=== PATIENT | male | born 1965 | race Caucasian/White ===

== ENCOUNTER 2024-01-08 16:34 | Inpatient (IN) | payer BC, SELFPAY ==
[2024-01-08] MEDS ORDERED: ACETAMINOPHEN 500 MG TAB PO PRN (18:17)
[2024-01-08] MEDS ORDERED: ONDANSETRON 4 MG/2 ML VIAL IV PRN (18:17)
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
[2024-01-08] MEDS: HYDROMORPHONE HCL 0.5 MG/0.5 ML INJ IV PRN (18:36)
[2024-01-08] MEDS: NA CHLORIDE 0.9% 1,000 ML IV SCH (18:36)
[2024-01-08] MEDS: PIPER TAZO 3.375 GM in NA CHLORIDE 0.9% 100 ML IV SCH (21:21)
[2024-01-08] MEDS: TRAZODONE 50 MG TABLET PO SCH (21:21)
[2024-01-09] MEDS: HYDROMORPHONE HCL 0.5 MG/0.5 ML INJ IV PRN (02:35)
[2024-01-09 06:51] LABS: Absolute Lymphocytes (CBC) 0.4 K/uL (0.7-4.9); Absolute Monocytes 0.8 K/uL (0.1-1.3); Absolute Neutrophil 10.1 K/uL (1.8-8.0); Basophils % 0.2 % (0-1.3); Eosinophils % 0.1 % (0-4.4); Hematocrit 40.3 % (39.6-49.0); Hemoglobin 13.7 g/dL (13.6-17.9); Lymphocytes % 3.3 % (15.3-44.8); MCH 31.1 pg (27.0-35.0); MCV 91.4 fL (80-100); MPV 8.3 fL (7.6-11.3); Monocytes % 7.2 % (3.3-12.3); Neutrophils % 89.2 % (41.7-73.7); Platelets 212 thou/uL (152-406); RBC Red Blood Cell Count 4.41 M/uL (4.33-5.43); Red Cell Distribution Width 12.7 % (12.1-15.2)
[2024-01-09 06:56] LABS: PT Prothrombin Time 15.1 SECONDS (9.4-12.5); PTT, Activated Partial Thromb 38.4 SECONDS (24.3-36.9); Protime INR 1.36
[2024-01-09 07:06] LABS: Albumin/Globulin Ratio 0.8 (1.1-1.8); Anion Gap 8.1 mEq/L (5.0-15.0); Bilirubin Direct 0.8 mg/dL (0-0.2); Bilirubin Indirect, Calculated 0.6 mg/dL (0.2-0.8); Bilirubin Total 1.4 mg/dL (0.2-1.0); Globulin 3.9 g/dL (2.3-3.5); Phosphorus 2.7 mg/dL (2.5-4.9); Potassium 3.1 mEq/L (3.5-5.1); Protein, Total 6.9 g/dL (6.4-8.2)
[2024-01-09] MEDS ORDERED: ROCURONIUM 50 MG/5 ML VIAL IV ONE (07:13)
[2024-01-09] MEDS ORDERED: FENTANYL CITR 100 MCG/2 ML ONE ×2 (07:13→08:12)
[2024-01-09] MEDS ORDERED: LIDOCAINE 2% MPF 5 ML VIAL ONE (07:13)
[2024-01-09] MEDS ORDERED: MIDAZOLAM HCL 2 MG/2 ML INJ ONE (07:13)
[2024-01-09] MEDS ORDERED: ONDANSETRON 4 MG/2 ML VIAL ONE (07:13)
[2024-01-09] MEDS ORDERED: propofoL 200 MG/20 ML VIAL IV ONE (07:13)
[2024-01-09] MEDS: NA CHLORIDE 0.9% 1,000 ML ONE (07:18)
[2024-01-09] MEDS: SUCCINYLCHOLINE 20 MG/ML (10 ML) IV ONE (07:23)
[2024-01-09] MEDS: SUGAMMADEX SODIUM 200 MG/2 ML VIAL IV ONE (07:23)
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
[2024-01-09] MEDS ORDERED: dexAMETHasone 10 MG/ML VIAL ONE (07:50)
[2024-01-09] MEDS: PIPER TAZO 3.375 GM in NA CHLORIDE 0.9% 100 ML IV SCH (07:53)
--- NOTE | 2024-01-09 09:08 | P.OP ---
Date of Service: 01/09/24 Preop diagnosis: Acute cholecystitis and cholelithiasis Postop diagnosis: Same with gallbladder perforation, adhesions Procedure performed: Laparoscopic cholecystectomy, lysis of adhesions Surgeon: Omi Medina MD Dietitian Teacher: None Estimated blood loss: 50 cc Specimen: Gallbladder Findings: As above Anesthesia: General Complications: None Drains: ADDISON drain #10 flat Fluids and blood products: Nonapplicable Disposition: Recovery room Operative note: Patient brought to the OR and placed in the supine position. General anesthesia began. Patient prepped and draped in the usual sterile fashion. Marcaine 0.5% infiltrated locally. 15 blade used to make a 1 cm supraumbilical midline incision. Subcutaneous tissue divided. Bleeding controlled cautery. Fascia identified and divided. #1 Vicryl stay suture placed. Peritoneal cavity entered with sharp blunt dissection. 12 mm trocar placed into the peritoneal cavity under direct vision. Pneumoperitoneum established. Three 5 mm trocar placed under direct vision. 1 trocar placed in the epigastric region just to the right of midline. 2 trocars placed in the right subcostal region. Laparoscopy revealed bile throughout the right upper quadrant and right side of the abdomen. This is consistent with a perforated gallbladder. There is extensive omental adhesions to the gallbladder. Sharp and blunt dissection was used to remove the adhesions from the gallbladder. An area of perforation in the body of the gallbladder was identified. This was grasped to limit the amount of bile spillage. The body was retracted superiorly and infundibulum identified and retracted inferolaterally. Cystic duct and cystic artery were clearly identified with blunt dissection. Clips placed and both structures divided. Cautery used to remove the gallbladder from the liver bed. There was extensive oozing from the liver bed and cautery was utilized aggressively to control the bleeding and the oozing. Bonny and Surgicel was used at the end of the case after bleeding was controlled. The gallbladder was retrieved to the umbilicus via Endo Catch bag. Right upper quadrant was irrigated if it was clear there was no further evidence of bile leakage or bleeding noted. Major-Lizama drain #10 flat was placed in the gallbladder fossa. This was secured with 3-0 nylon. All trocars were removed under direct vision. Stay sutures were tied to each other to reapproximate the fascial defect. Subcutaneous wounds irrigated and bleeding controlled with cautery. 3- 0 chromic used to approximate subcutaneous tissue. [place] used to close skin. Sterile dressing applied and patient was awakened and taken to recovery room in good general condition. CC:
[2024-01-09 09:47] LABS: Blood Morphology Comment NOT SEEN (NOT SEEN); Platelet Estimate ADEQ; White Blood Cell Scan OK (OK)
[2024-01-09] MEDS: SERTRALINE HCL 100 MG TAB PO SCH (11:05)
[2024-01-09] MEDS: POTASSIUM CL SA 10 MEQ TAB PO ONE (11:14)
[2024-01-09] MEDS: HYDROMORPHONE HCL 1 MG/ML INJ IV PRN (15:31)
[2024-01-09] MEDS ORDERED: ENOXAPARIN 40 MG/0.4 ML SQ SCH (17:00)
[2024-01-09 17:25] LABS: Absolute Basophils 0.1 K/uL (0-0.5); Absolute Lymphocytes (CBC) 0.3 K/uL (0.7-4.9); Absolute Monocytes 0.6 K/uL (0.1-1.3); Absolute Neutrophil 11.7 K/uL (1.8-8.0); Basophils % 0.6 % (0-1.3); Hematocrit 38.2 % (39.6-49.0); Lymphocytes % 2.6 % (15.3-44.8); MCH 31.2 pg (27.0-35.0); MCV 91.7 fL (80-100); MPV 8.3 fL (7.6-11.3); Monocytes % 4.7 % (3.3-12.3); Neutrophils % 92.1 % (41.7-73.7); Nucleated Red Blood Cells % 0.1 % (0-0); Platelets 217 thou/uL (152-406); RBC Red Blood Cell Count 4.17 M/uL (4.33-5.43); Red Cell Distribution Width 12.8 % (12.1-15.2)
[2024-01-09 17:45] LABS: Albumin 2.8 g/dL (3.4-5.0); Albumin/Globulin Ratio 0.7 (1.1-1.8); Anion Gap 6.9 mEq/L (5.0-15.0); Bilirubin Total 0.7 mg/dL (0.2-1.0); Globulin 4.1 g/dL (2.3-3.5); Potassium 3.9 mEq/L (3.5-5.1); Protein, Total 6.9 g/dL (6.4-8.2)
[2024-01-09 18:07] VITALS: BMI 31.4
[2024-01-09 18:27] LABS: Blood Morphology Comment NOT SEEN (NOT SEEN); Platelet Estimate ADEQ; White Blood Cell Scan OK (OK)
[2024-01-09] MEDS: HYDROCODONE/APAP 7.5/325 MG TAB PO PRN (19:23)
[2024-01-10 06:39] LABS: Absolute Lymphocytes (CBC) 0.5 K/uL (0.7-4.9); Absolute Monocytes 0.8 K/uL (0.1-1.3); Absolute Neutrophil 9.5 K/uL (1.8-8.0); Basophils % 0.2 % (0-1.3); Hemoglobin 12.4 g/dL (13.6-17.9); MCH 31.1 pg (27.0-35.0); MCHC 33.4 g/dL (32.0-36.0); MCV 93.1 fL (80-100); MPV 8.4 fL (7.6-11.3); Neutrophils % 87.8 % (41.7-73.7); Platelets 233 thou/uL (152-406); RBC Red Blood Cell Count 3.97 M/uL (4.33-5.43); Red Cell Distribution Width 12.7 % (12.1-15.2)
[2024-01-10 06:55] LABS: Anion Gap 6.2 mEq/L (5.0-15.0); Magnesium 2.4 mg/dL (1.6-2.4); Potassium 4.2 mEq/L (3.5-5.1)
[2024-01-10] MEDS ORDERED: PHENAZOPYRIDINE 100MG TAB PO PRN (08:32)
[2024-01-10] MEDS: PHENAZOPYRIDINE 100MG TAB PO SCH (09:19)
--- NOTE | 2024-01-10 10:26 | P.PN ---
Date of Service: 01/09/24 Subjective patient is status post laparoscopic cholecystectomy. Patient clinically doing well. Possible discharge in the morning. Physical Examination - Vital Signs reviewed - Physical Exam General: Alert, In no apparent distress, Oriented x3 Respiratory: Clear to auscultation bilaterally, Normal air movement Cardiovascular: Regular rate/rhythm, Normal S1 S2, No murmurs Gastrointestinal: Normal bowel sounds, Soft and benign, Non-distended, No tenderness Musculoskeletal: No clubbing, No swelling, No tenderness Integumentary: No rashes Neurological: No focal deficits Assessment & Plan - Problems (Diagnosis) (1) Acute cholecystitis Current Visit: Yes Status: Acute (2) H/O gastric sleeve Current Visit: Yes Status: Acute (3) Cervical spine fracture Current Visit: Yes Status: Acute - Plan Plan: 1. status post laparoscopic cholecystectomy 2. Continue with IV antibiotics 3. Continue wuth LulaIV fluids 4. Pain control 5. Repeat labs 6. Monitor C-spine closely 7. GI DVT prophylaxis Discharge Plan: Home Plan to discharge in: Greater than 2 days - Advance Directives Does patient have a Living Will: No Does patient have a Durable POA for Healthcare: No of all
--- NOTE | 2024-01-10 11:29 | PN ---
Date of Progress Note: 01/10/2024 Subjective: The patient is awake and alert. No complaint. He still requires IV pain medicine. Objective: Vital Signs: Stable. He is afebrile. Abdomen: Benign. Dressing is clean, dry, and intact. Major-Lizama drain put out 80 cc yesterday evening, and 30 cc this morning. The patient tolerated h is diet last night. Laboratory Data: His white count is 10.9. H and H is slightly lower at 12.4 and 37.0. He still has a left shift. Chemistry reviewed. Assessment: Status post laparoscopic cholecystectomy for perforated gallbladder. Recommendations: Continue IV antibiotics and parenteral pain management for now. Patient most likel y can be discharged home tomorrow morning on oral antibiotics, and follow up with me next week. We w ill take the drain out in the office. Drain teaching, incentive spirometry, and ambulation is encour aged for the patient. /MODL Voice ID: [id number] Report ID: [id number]
--- NOTE | 2024-01-10 11:41 | P.PN ---
Subjective Date of Service: 01/10/24 Chief Complaint: Abdominal pain Pt is resting comfortably in his room. Pt is wearing a neck collar. S/p Lap cholecystectomy. POD#1. Gen surgeon wants him to stay till tomorrow ffor iv abx. No other complaints. Review of Systems General: Unremarkable Eyes: Unremarkable ENT: Unremarkable Respiratory: Unremarkable Cardiovascular: Unremarkable Gastrointestinal: Unremarkable Genitourinary: Unremarkable Musculoskeletal: Neck Pain Integumentary: Unremarkable Neurological: Unremarkable Lymphatics: Unremarkable Physical Examination - Vital Signs Temperature: 98.0 F Blood Pressure: 123/72 Pulse: 76 Respirations: 14 Pulse Ox (%): 94 - Physical Exam General: Alert, In no apparent distress, Oriented x3 HEENT: Atraumatic, Normocephalic, PERRLA Neck: Supple, 2+ carotid pulse no bruit, Other (neck collar in place) Respiratory: Clear to auscultation bilaterally, Normal air movement Cardiovascular: No edema, Normal pulses, Regular rate/rhythm, Normal S1 S2 Capillary refill: <2 Seconds Gastrointestinal: Normal bowel sounds, Soft and benign, Non-distended Musculoskeletal: No clubbing, No swelling, No contractures, Other (neck collar is in place) Integumentary: No rashes, No breakdown, No significant lesion Neurological: Normal gait, Normal speech, Normal strength at 5/5 x4 extr Lymphatics: No axilla or inguinal lymphadenopathy - Studies Laboratory Data (last 24 hrs) 01/10/24 01/10/24 01/09/24 06:16 06:16 17:09 WBC 10.90 Hgb 12.4 L Hct 37.0 L Plt Count 233 Sodium 142 139 Potassium 4.2 3.9 BUN 7 5 L Creatinine 0.69 L 0.82 Glucose 120 H 178 H Magnesium 2.4 Total Bilirubin 0.7 AST 60 H ALT 62 H Alkaline Phosphatase 103 01/09/24 01/09/24 17:09 17:09 WBC 12.70 H Hgb 13.0 L Hct 38.2 L Plt Count 217 Sodium Potassium 3.9 D BUN Creatinine Glucose Magnesium Total Bilirubin AST ALT Alkaline Phosphatase Assessment And Plan - Plan Acute cholecystitis: S/p lap cholecystectomy. Continue iv zosyn and prn pain med. Gen surgeon is following. Hx of Gastric Sleeve: noted. Cervical spine fracture Pt is wearing neck collar. Will continue prn pain med. No weakness in upper extremities. DVT ppx SCD Code: full
[2024-01-11 06:46] LABS: Absolute Eosinophils 0.1 K/uL (0-0.5); Absolute Lymphocytes (CBC) 1.1 K/uL (0.7-4.9); Absolute Monocytes 0.6 K/uL (0.1-1.3); Absolute Neutrophil 4.7 K/uL (1.8-8.0); Basophils % 0.1 % (0-1.3); Eosinophils % 1.8 % (0-4.4); Hemoglobin 12.3 g/dL (13.6-17.9); Lymphocytes % 16.7 % (15.3-44.8); MCH 31.2 pg (27.0-35.0); MCHC 33.4 g/dL (32.0-36.0); MCV 93.3 fL (80-100); MPV 8.2 fL (7.6-11.3); Neutrophils % 72.4 % (41.7-73.7); Nucleated Red Blood Cells % 0.1 % (0-0); Platelets 240 thou/uL (152-406); RBC Red Blood Cell Count 3.96 M/uL (4.33-5.43); Red Cell Distribution Width 12.8 % (12.1-15.2)
[2024-01-11 07:08] LABS: Anion Gap 5.6 mEq/L (5.0-15.0); Potassium 3.6 mEq/L (3.5-5.1)
[2024-01-11] MEDS: POTASSIUM CL SA 10 MEQ TAB PO ONE (08:36)
[2024-01-11 09:12] VITALS: O2SAT 94
--- NOTE | 2024-01-11 09:31 | PN ---
Date of Progress Note: 01/11/2024 Subjective: The patient is awake, alert. No complaint. Tolerating diet and pain control, on p.o. p ain medication. Objective: Vital Signs: Stable. Afebrile. Abdomen: Benign, soft, nondistended, nontender. Positive bowel sounds. Dressing is clean, dry, int act Laboratory Data: Reviewed. H and H are stable. White count is normal. There is no left shift and chemistry reviewed essentially unremarkable. ADDISON drain put out 55 cc of serosanguineous fluid. Assessment: Status post laparoscopic cholecystectomy for perforated gallbladder. Recommendations: The patient is cleared from Surgery for discharge. Discharge instructions were giv en to patient in detail. The patient to follow up with me next week. Drain care was discussed with the patient as well and hospitalist team will prescribe the antibiotics and pain medicines. /MODL Voice ID: [id number] Report ID: [id number]
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
[2024-01-11 12:25] VITALS: BP 123/75; TEMP 97.9
== END 2024-01-11 15:00 | disposition home or self-care (01) | DRG 418 ==
LOC: INTOOBSV 17:34 → 4TH 17:34 → OBSVTOIN 01-09 17:28
PROVIDERS: ADMIT Hospitalist; ATTEND Hospitalist
PROC: 0FT44ZZ Resection of Gallbladder, Percutaneous Endoscopic Approach (ICD-10-PCS; principal; 2024-01-09 07:30)
DX: K80.00 Calculus of gallbladder with acute cholecystitis without obstruction (principal); K82.A2 Perforation of gallbladder in cholecystitis; K66.0 Peritoneal adhesions (postprocedural) (postinfection); E66.01 Morbid (severe) obesity due to excess calories; S12.500D Unspecified displaced fracture of sixth cervical vertebra, subsequent encounter for fracture with routine healing; S12.600D Unspecified displaced fracture of seventh cervical vertebra, subsequent encounter for fracture with routine healing; Z98.84 Bariatric surgery status; Z79.899 Other long term (current) drug therapy; Z87.891 Personal history of nicotine dependence; Z68.31 Body mass index [BMI] 31.0-31.9, adult
CPT/HCPCS: 36415; 80048; 80053; 82248; 83690; 83735; 84100; 84132; 85025; 85610; 85730; 86850; 86900; 86901; 88304; 94010; G0378; G0379; J1100; J1171; J2003; J2250; J2405; J2543; J2704; J3010; J7030